=== PATIENT | male | born 1970 | race Caucasian/White ===

== ENCOUNTER 2021-10-28 15:52 | Outpatient (CLI) | payer BC | END 2021-10-28 15:53 | disposition home or self-care (01) | LOC: NAV RAD 15:52 | PROVIDERS: ATTEND Internal Medicine Rheumatology | DX: M54.50 Low back pain, unspecified (principal) | CPT/HCPCS: 72110 ==

== ENCOUNTER 2021-11-04 16:00 | Outpatient (CLI) | payer BC | END 2021-11-04 16:01 | disposition home or self-care (01) | LOC: NAV RAD 16:00 | PROVIDERS: ATTEND Internal Medicine Rheumatology | DX: M54.2 Cervicalgia (principal); M47.812 Spondylosis without myelopathy or radiculopathy, cervical region | CPT/HCPCS: 72052 ==